=== PATIENT | male | born 1945 | race Caucasian/White ===

== ENCOUNTER → 2017-08-20 | Outpatient (REF) ==
--- NOTE | 2017-08-20 13:39 | REP ---
PA and lateral chest: There are no comparisons. The left hemidiaphragm is elevated. The lung felix are clear. Cardiac size is normal. The doni, mediastinum, and bony thorax are unremarkable. There are sternotomy wires. Impression: There are no acute cardiopulmonary findings. There are sternotomy wires. The left hemidiaphragm is elevated. Signed by Jose Juan Christopher MD 08/20/2017 01:30 P
== END ==
LOC: M RAD 13:11
PROVIDERS: ATTEND Physician Assistant
DX: R05 Cough (principal)

== ENCOUNTER 2021-06-06 06:47 | Day surgery (SDC) | payer OTHER ==
[~2021-06-06] VITALS: Ht 165.1 cm; Wt 61.6 kg
[~2021-06-06 06:47] MED LIST: ECOT81TA5 PO; IRON27TA2 PO; LISI2.5T9 PO; METF500T13 PO; METO1TAB87 PO; NS 1,000 ML IV ONE; OMEP1CAP73 PO; OMEP40CA4 PO; ROSU40TA4 PO
[2021-06-06] MEDS ORDERED: LIDOCAINE 2% 100MG/5ML SDV (FOR ANES.) As Ordered ONE (07:37)
[2021-06-06] MEDS ORDERED: propofoL 200 MG/20 ML VIAL As Ordered ONE (07:37)
--- NOTE | 2021-06-06 07:47 | ROOR ---
Patient Name: Arash Ayers Procedure Date: 06/06/2021 7:30 AM Date of : 1945 Age: 75 Room: [facility] Gender: Male Note Status: Finalized Procedure: Colonoscopy Indications: High risk colon cancer surveillance: Personal history of colonic polyps Providers: DO Mandeep Mendoza MD: [facility], Admin. Requesting Provider: Medicines: Propofol per Anesthesia Complications: No immediate complications. Procedure: Pre-Anesthesia Assessment: - Prior to the procedure, a History and Physical was performed, and patient medications and allergies were reviewed. The patient is competent. The risks and benefits of the procedure and the sedation options and risks were discussed with the patient. All questions were answered and informed consent was obtained. Patient identification and proposed procedure were verified by the physician, the nurse, the anesthesiologist and the animal husbandry technician in the endoscopy suite. Mental Status Examination: alert and oriented. Airway Examination: normal oropharyngeal airway and neck mobility. Respiratory Examination: clear to auscultation. CV Examination: normal. Prophylactic Antibiotics: The patient does not require prophylactic antibiotics. Prior Anticoagulants: The patient has taken no previous anticoagulant or antiplatelet agents. ASA Grade Assessment: II - A patient with mild systemic disease. After reviewing the risks and benefits, the patient was deemed in satisfactory condition to undergo the procedure. The anesthesia plan was to use monitored anesthesia care (MAC). Immediately prior to administration of medications, the patient was re-assessed for adequacy to receive sedatives. The heart rate, respiratory rate, oxygen saturations, blood pressure, adequacy of pulmonary ventilation, and response to care were monitored throughout the procedure. The physical status of the patient was re-assessed after the procedure. The Colonoscope was introduced through the anus and advanced to the cecum, identified by appendiceal orifice and ileocecal valve. The colonoscopy was performed without difficulty. The patient tolerated the procedure well. Findings: Non-bleeding internal hemorrhoids were found during retroflexion. The hemorrhoids were Grade II (internal hemorrhoids that prolapse but reduce spontaneously). A few small-mouthed diverticula were found in the sigmoid colon. Impression: - Non-bleeding internal hemorrhoids. - Diverticulosis in the sigmoid colon. - No specimens collected. Recommendation: - Patient has a contact number available for emergencies. The signs and symptoms of potential delayed complications were discussed with the patient. Return to normal activities tomorrow. Written discharge instructions were provided to the patient. - Repeat colonoscopy in 5-10 years for surveillance of high-grade dysplasia. - Return to my office PRN. Procedure Code(s): --- Professional --- G0105, Colorectal cancer screening; colonoscopy on individual at high risk Diagnosis Code(s): --- Professional --- Z86.010, Personal history of colonic polyps K64.1, Second degree hemorrhoids K57.30, Diverticulosis of large intestine without perforation or abscess without bleeding CPT copyright 2019 [employer]. All rights reserved. The codes documented in this report are preliminary and upon computer language coder review may be revised to meet current compliance requirements. Jose Juan Bowie DO 06/06/2021 7:46:52 AM Electronically signed by Jose Juan Bowie DO Number of Addenda: 0 Note Initiated On: 06/06/2021 7:30 AM Estimated Blood Loss: Estimated blood loss: none.
== END 2021-06-06 08:24 | disposition home or self-care (01) ==
LOC: M OPP 06:47
PROVIDERS: ATTEND Surgery
DX: Z12.11 Encounter for screening for malignant neoplasm of colon (principal); Z86.010 Personal history of colon polyps; K57.30 Diverticulosis of large intestine without perforation or abscess without bleeding; K64.1 Second degree hemorrhoids; Z79.84 Long term (current) use of oral hypoglycemic drugs; Z79.899 Other long term (current) drug therapy; Z95.5 Presence of coronary angioplasty implant and graft; Z87.891 Personal history of nicotine dependence

== ENCOUNTER → 2022-06-26 | Outpatient (CLI) | payer OTHER ==
[~2022-06-26] MED LIST changes: -NS 1,000 ML IV ONE
== END ==
LOC: M RAD 11:50
PROVIDERS: ATTEND Physician Assistant Medical
DX: Z53.9 Procedure and treatment not carried out, unspecified reason (principal)

== ENCOUNTER → 2022-06-26 | Outpatient (REF) | LOC: M RAD 11:53 | PROVIDERS: ATTEND Physician Assistant Medical | DX: M25.78 Osteophyte, vertebrae (principal); M51.36 Other intervertebral disc degeneration, lumbar region; M51.37 Other intervertebral disc degeneration, lumbosacral region ==

== ENCOUNTER 2024-07-02 10:23 | Inpatient (IN) | payer MEDICARE, OTHER ==
[~2024-07-02] VITALS: Ht 165.1 cm; Wt 64.8 kg
[~2024-07-02 10:23] MED LIST changes: -ROSU40TA4 PO; +ROSU40TA81 PO
[2024-07-02] MEDS ORDERED: PENT500C PO (10:57)
[2024-07-02 11:32] LABS: BASO % 0.3 % (0.0-1.0); EOS # 0.3 10^3/uL (0.0-0.5); EOS % 4.3 % (0.0-3.0); HEMATOCRIT 32.8 % (42.0-52.0); HEMOGLOBIN 11.3 g/dl (13.5-17.5); LYMPH # 1.1 10^3/uL (1.5-5.0); LYMPH % 17.9 % (24.0-44.0); MEAN CORPUSCULAR HEMOGLOBIN 32.1 pg (27.0-33.0); MEAN CORPUSCULAR HGB CONC 34.5 g/dl (32.0-36.5); MEAN CORPUSCULAR VOLUME 93.2 fl (80.0-96.0); MONO # 0.8 10^3/uL (0.0-0.8); NEUTROPHILS # 4.1 10^3/uL (1.5-8.5); NEUTROPHILS % 65.3 % (36.0-66.0); PLATELET COUNT, AUTOMATED 226 10^3/uL (150-450); RED BLOOD COUNT 3.52 10^6/uL (4.30-6.10); WHITE BLOOD COUNT 6.2 10^3/uL (4.0-10.0)
[2024-07-02 11:54] LABS: ALBUMIN 3.9 G/DL (3.2-5.2); BILIRUBIN,TOTAL 0.6 MG/DL (0.3-1.2); CALCIUM LEVEL 9.6 MG/DL (8.3-10.6); CREATININE FOR GFR 3.11 MG/DL (0.70-1.30); GLOMERULAR FILTRATION RATE 20.8 (>42); POTASSIUM SERUM 4.5 MMOL/L (3.5-5.1); TOTAL PROTEIN 6.4 G/DL (5.7-8.2)
[2024-07-02 13:10] LABS: CK-MB VALUE MASS 2.9 NG/ML (<3.6); MB/CK RELATIVE INDEX 1.45 (< OR =4)
[2024-07-02 13:56] LABS: CK-MB VALUE MASS 3.2 NG/ML (<3.6); MB/CK RELATIVE INDEX 1.67 (< OR =4)
[2024-07-02 14:00] LABS: FREE T4 1.15 NG/DL (0.89-1.76); THYROID STIMULATING HORMONE 1.158 uIU/ML (0.55-4.78)
[2024-07-02] MEDS ORDERED: MESA50SU PR (14:47)
[2024-07-02] MEDS ORDERED: METO1TAB33 PO (14:47)
[2024-07-02] MEDS ORDERED: DICL100G10 TOP (14:47)
[2024-07-02] MEDS ORDERED: OMEP-173 PO (14:47)
[2024-07-02] MEDS ORDERED: VITA100066 PO (14:47)
[2024-07-02] MEDS ORDERED: MULTTAB62 PO (14:47)
[2024-07-02] MEDS ORDERED: FERR324T2 PO (14:47)
[2024-07-02] MEDS ORDERED: LISI10TA22 PO (14:47)
[2024-07-02] MEDS ORDERED: KETO2CR TOP (14:47)
[2024-07-02] MEDS ORDERED: FLOM0.4C39 PO (14:47)
[2024-07-02] MEDS ORDERED: METF-877 PO (14:47)
[2024-07-02] MEDS ORDERED: HOME MED LIST COMPLETE! XX SCH (14:50)
[2024-07-02] MEDS: NS 1,000 ML IV SCH (16:46)
[2024-07-02 16:54] VITALS: BP 125/60; TEMP 98.1; O2SAT 99
[2024-07-02] MEDS: INSULIN LISPRO (NovoLOG) PER UNIT SC SCH ×2 (17:30→21:00)
[2024-07-02] MEDS ORDERED: GLUCOSE 4 GM CHEW PO PRN (18:05)
[2024-07-02] MEDS ORDERED: DEXTROSE 50% 50ML SYRINGE IV PRN (18:05)
[2024-07-02] MEDS ORDERED: GLUCAGON INJ 1MG VIAL SC PRN (18:05)
[2024-07-02 20:39] VITALS: BP 103/51; TEMP 98.2; O2SAT 98
[2024-07-02] MEDS: KETOCONAZOLE 2% CREAM TOP SCH (21:00)
[2024-07-02] MEDS: MESALAMINE 1,000 MG SUPP PR SCH (21:00)
[2024-07-02] MEDS: OMEPRAZOLE 20MG CAP PO SCH (22:49)
[2024-07-03 04:15] VITALS: BP 111/53; TEMP 97.7; O2SAT 97
[2024-07-03 05:44] LABS: HEMATOCRIT 30.5 % (42.0-52.0); HEMOGLOBIN 10.5 g/dl (13.5-17.5); MEAN CORPUSCULAR HEMOGLOBIN 32.2 pg (27.0-33.0); MEAN CORPUSCULAR HGB CONC 34.4 g/dl (32.0-36.5); MEAN CORPUSCULAR VOLUME 93.6 fl (80.0-96.0); PLATELET COUNT, AUTOMATED 195 10^3/uL (150-450); RED BLOOD COUNT 3.26 10^6/uL (4.30-6.10); WHITE BLOOD COUNT 6.5 10^3/uL (4.0-10.0)
[2024-07-03 06:01] LABS: CALCIUM LEVEL 9.6 MG/DL (8.3-10.6); CREATININE FOR GFR 2.77 MG/DL (0.70-1.30); GLOMERULAR FILTRATION RATE 23.7 (>42); POTASSIUM SERUM 4.4 MMOL/L (3.5-5.1)
[2024-07-03] MEDS: ROSUVASTATIN 10 MG TAB (CRESTOR) PO SCH (08:05)
[2024-07-03] MEDS: ASPIRIN 81MG ENTERIC TABLET PO SCH (08:06)
[2024-07-03] MEDS: TAMSULOSIN 0.4 MG CAP PO SCH (08:06)
[2024-07-03] MEDS: ENOXAPARIN 40MG/0.4ML SYRINGE (J1650 PER 10MG) SC SCH (08:07)
[2024-07-03 12:00] VITALS: BP 126/69; TEMP 98.1; O2SAT 100
[2024-07-03] MEDS: FERROUS SULFATE 325MG TAB PO SCH (15:50)
[2024-07-03 17:23] LABS: APPEARANCE, URINE CLEAR (CLEAR); BACTERIA, URINE AUTO NEGATIVE (NEGATIVE); BILIRUBIN, URINE AUTO NEGATIVE (NEGATIVE); BLOOD, URINE BLOOD 2+ (NEGATIVE); COLOR, URINE STRAW (YELLOW); GLUCOSE, URINE (UA) AUTO 1+ mg/dL (NEGATIVE); KETONE, URINE AUTO NEGATIVE (NEGATIVE); LEUKOCYTE ESTERASE, URINE AUTO NEGATIVE (NEGATIVE); NITRITE, URINE AUTO NEGATIVE (NEGATIVE); PROTEIN, URINE AUTO NEGATIVE (NEGATIVE); RBC, URINE AUTO 0 /HPF (0-3); SPECIFIC GRAVITY URINE AUTO 1.005 (1.002-1.035); SQUAMOUS EPITHELIAL CELL UR AU 0 /HPF (0-6); UROBILINOGEN, URINE AUTO 0.2 mg/dL (0.0-2.0); WBC, URINE AUTO 1 /HPF (0-3)
[2024-07-03 17:39] LABS: CHLORIDE,RANDOM URINE 72 MMOL/L; SODIUM,RANDOM URINE 71 MMOL/L
[2024-07-03 17:48] LABS: CREATININE,RANDOM URINE 25.8 MG/DL
[2024-07-03 19:40] VITALS: BP 109/69; TEMP 98.1; O2SAT 98
[2024-07-04 04:00] VITALS: BP 115/69; TEMP 98.2; O2SAT 96
[2024-07-04 05:08] LABS: BASO % 0.3 % (0.0-1.0); EOS # 0.3 10^3/uL (0.0-0.5); EOS % 5.5 % (0.0-3.0); HEMATOCRIT 28.6 % (42.0-52.0); HEMOGLOBIN 9.9 g/dl (13.5-17.5); LYMPH # 1.4 10^3/uL (1.5-5.0); LYMPH % 21.8 % (24.0-44.0); MEAN CORPUSCULAR HEMOGLOBIN 32.4 pg (27.0-33.0); MEAN CORPUSCULAR HGB CONC 34.6 g/dl (32.0-36.5); MEAN CORPUSCULAR VOLUME 93.5 fl (80.0-96.0); MONO # 0.9 10^3/uL (0.0-0.8); MONO % 13.9 % (2.0-8.0); NEUTROPHILS # 3.6 10^3/uL (1.5-8.5); NEUTROPHILS % 58.2 % (36.0-66.0); PLATELET COUNT, AUTOMATED 186 10^3/uL (150-450); RED BLOOD COUNT 3.06 10^6/uL (4.30-6.10); WHITE BLOOD COUNT 6.2 10^3/uL (4.0-10.0)
[2024-07-04 05:28] LABS: CALCIUM LEVEL 8.9 MG/DL (8.3-10.6); CREATININE FOR GFR 2.26 MG/DL (0.70-1.30); MAGNESIUM LEVEL 1.4 MG/DL (1.8-2.4); POTASSIUM SERUM 3.9 MMOL/L (3.5-5.1)
[2024-07-04] MEDS: MAGNESIUM OXIDE 400MG TAB (MAG-OX) PO SCH (06:17)
[2024-07-04] MEDS: MAG SULF 1GM/100ML (MAG RUN) 1 GM in IV 1 EA IV ONE (08:50)
[2024-07-04] MEDS: FLUBLOK(EGGFREE) TRIVAL(24-25) VACCINE PF 0.5ML SYRINGE 18YRS & OLDER IM.IMMUN ONE (08:53)
[2024-07-04] MEDS ORDERED: JANU25TA PO (09:14)
[2024-07-04] MEDS: METAMUCIL (PSYLLIUM) PACKET PO PRN (10:14)
[2024-07-04] MEDS ORDERED: MAGN400T2 PO (11:36)
== END 2024-07-04 13:15 | disposition home or self-care (01) | DRG 684 ==
LOC: M ED 10:23 → M ED INP 15:38 → M MSPAV 16:54
PROVIDERS: ADMIT Internal Medicine; ATTEND Internal Medicine
DX: N17.9 Acute kidney failure, unspecified (principal); K21.9 Gastro-esophageal reflux disease without esophagitis; E83.42 Hypomagnesemia; N18.30 Chronic kidney disease, stage 3 unspecified; E86.0 Dehydration; I25.10 Atherosclerotic heart disease of native coronary artery without angina pectoris; Z95.1 Presence of aortocoronary bypass graft; I12.9 Hypertensive chronic kidney disease with stage 1 through stage 4 chronic kidney disease, or unspecified chronic kidney disease; E11.9 Type 2 diabetes mellitus without complications; D50.9 Iron deficiency anemia, unspecified; N40.0 Benign prostatic hyperplasia without lower urinary tract symptoms; Z79.82 Long term (current) use of aspirin; Z79.899 Other long term (current) drug therapy

== ENCOUNTER 2025-08-04 09:52 | Emergency (ER) | payer OTHER, MEDICARE ==
[~2025-08-04] VITALS: Ht 165.1 cm; Wt 71.8 kg
[~2025-08-04 09:52] MED LIST changes: +DICL100G10 TOP; +FERR324T2 PO; +JANU25TA PO; +KETO2CR TOP; +LISI10TA22 PO; +MAGN400T2 PO; +MESA50SU PR; +METF-877 PO; +METO1TAB33 PO; +MULTTAB62 PO; +OMEP-173 PO; +PENT500C PO; +TAMS-18 PO; +VITA100066 PO
[2025-08-04 11:33] LABS: BASO # 0.0 10^3/uL (0.0-0.2); BASO % 0.2 % (0.0-1.0); EOS # 0.4 10^3/uL (0.0-0.5); EOS % 3.9 % (0.0-3.0); LYMPH # 1.3 10^3/uL (1.5-5.0); LYMPH % 13.0 % (24.0-44.0); MONO # 0.9 10^3/uL (0.0-0.8); MONO % 9.1 % (2.0-8.0); NEUTROPHILS # 7.6 10^3/uL (1.5-8.5); NEUTROPHILS % 73.4 % (36.0-66.0); PLATELET COUNT, AUTOMATED 255 10^3/uL (150-450)
[2025-08-04 12:05] LABS: ALT/SGPT 24.0 U/L (7.0-40); AST/SGOT 25.0 U/L (<34)
[2025-08-04 12:30] LABS: CALCIUM LEVEL 9.0 MG/DL (8.3-10.6); CARBON DIOXIDE LEVEL 28.0 MMOL/L (20-31); CHLORIDE LEVEL 104.0 MMOL/L (98-107); CREATININE FOR GFR 1.58 MG/DL (0.70-1.30); GLOMERULAR FILTRATION RATE 44.2 (>42); POTASSIUM SERUM 4.2 MMOL/L (3.5-5.1); SODIUM LEVEL 143.0 MMOL/L (136-145)
[2025-08-04] MEDS: NS 500 ML IV ONE (12:45)
[2025-08-04 13:25] LABS: KETONE, URINE AUTO RFX NEGATIVE (NEGATIVE); LEUKOCYTE ESTERASE UR AUTO RFX NEGATIVE (NEGATIVE); NITRITE, URINE AUTO RFX NEGATIVE (NEGATIVE); RBC, URINE AUTO RFX 0 /HPF (0-3); SQUAM EPITHELIAL CELL UR AURFX 0 /HPF (0-6); WBC, URINE AUTO RFX 0 /HPF (0-3)
[2025-08-04] MEDS ORDERED: ISOVUE-370 76% 100 ML VIAL As Ordered ONE (13:53)
[2025-08-05 00:34] VITALS: BP 99/49; TEMP 97.5; O2SAT 96
== END 2025-08-05 00:35 | disposition short-term general hospital (02) ==
LOC: M ED 09:52
DX: K92.2 Gastrointestinal hemorrhage, unspecified (principal); A09 Infectious gastroenteritis and colitis, unspecified; J98.11 Atelectasis; I51.7 Cardiomegaly; K76.0 Fatty (change of) liver, not elsewhere classified; N28.1 Cyst of kidney, acquired; R16.0 Hepatomegaly, not elsewhere classified; K21.9 Gastro-esophageal reflux disease without esophagitis; I25.2 Old myocardial infarction; I10 Essential (primary) hypertension; E11.9 Type 2 diabetes mellitus without complications; N18.9 Chronic kidney disease, unspecified; Z86.79 Personal history of other diseases of the circulatory system; Z79.82 Long term (current) use of aspirin; Z79.899 Other long term (current) drug therapy
CPT/HCPCS: 74174; 80047; 80048; 80076; 81001; 83690; 85025; 96361; 96374; 99284; J2919; Q9967